=== PATIENT | male | born 1980 | race Caucasian/White ===

== ENCOUNTER 2023-04-04 08:32 | Emergency (ER) | payer OTHER, SELFPAY ==
[2023-04-04] VITALS (7 sets, daily range): BP systolic 111–127; BP diastolic 68–89; PULSE 51–78; RESP 18; TEMP 36.2; O2SAT 98–100; BMI 21.7
--- NOTE | 2023-04-04 08:50 | ED.HA ---
HPI - Headache General Chief Complaint: Headache Stated Complaint: dizzy/N/Head hurts Time Seen by Provider: 04/04/23 08:45 Mode of arrival: Family Vehicle History of Present Illness HPI Narrative: Patient is a healthy 42-year-old male who presents today with dizziness. He has had episodes of sounds like vertigo previously but nothing this bad. He tried to get out of bed get ready for work he was unable to do so. He was nauseated vomiting. If he lays down he is fine but whenever he stands up to walk his difficulty walking. He is no chest pain or palpitations. No fever chills. Related Data Previous Rx's Medication Instructions Recorded meclizine 25 mg tablet 25 mg PO TID PRN dizziness #14 tabs 04/04/23 Allergies Allergy/AdvReac Type Severity Reaction Status Date / Time No Known Drug Allergies Allergy Verified 04/04/23 08:41 Review of Systems Review of Systems ROS Unobtainable: All systems reviewed & are unremarkable except as noted in HPI and below Patient History Social History Smoking Status: Current every day smoker Smoking Status: Current every day smoker tobacco type: cigarettes alcohol intake frequency: 0-2 drinks per day Substance Use Type: marijuana Exam Initial Vital Signs Initial Vital Signs: Vital Signs Temperature 97.2 F L 04/04/23 08:41 Pulse Rate 78 04/04/23 08:41 Respiratory Rate 18 04/04/23 08:41 Blood Pressure 127/89 04/04/23 08:41 Pulse Oximetry 99 04/04/23 08:41 Oxygen Delivery Method Room Air 04/04/23 08:41 GENERAL: Alert 42-year-old male and in no acute distress. HEENT: Head atraumatic,EOMI mild nystagmus bilaterally, pupils reactive, face symmetric, moist mucous membranes CARDIOVASCULAR: Regular rate and rhythm without murmurs, rubs or gallops. RESPIRATORY: Breath sounds equal bilaterally, no wheezes rales or rhonchi. ABDOMEN: Soft, nontender. Normoactive bowel sounds all 4 quadrants. No guarding or rebound. EXTREMITIES: Normal range of motion, no clubbing or edema. Neurovascularly intact NEUROLOGICAL: Alert and oriented x4.Normal gait and speech. Cranial nerves II through XII grossly intact. Good [id number], good [id number], strength equal bilaterally, no dysarthria or aphasia, sensation in tact to soft touch bilaterally, no visual changes, no facial droop SKIN: Warm, dry, no laceration, no petechiae, no rashes or lesions. Scores NIH Stroke Scale Level of Conciousness: Alert, keenly responsive Ask month/age: Answers both questions correctly. Open/close eyes, close hand: Performs both tasks correctly Best gaze horizontal: Normal Visual simpson: No visual loss Facial palsy: Normal symetrical movement Left arm drift: No drift for full 10 sec Right arm drift: No drift for full 10 sec Left leg drift: No drift for full 5 sec Right leg drift: No drift for full 5 sec Limb ataxia: Absent Sensory on face/arms/legs: Normal, no sensory loss Best language: No aphasia, normal Dysarthria: Normal Extinction or inattention: No abnormality Total NIH Stroke scale score: 0 Course Orders Ordered: Discontinued Medications Sodium Chloride (Normal Saline 0.9%) 1,000 mls @ 1,000 mls/hr IV BOLUS ONE Stop: 04/04/23 09:57 Last Infusion: 04/04/23 10:16 Dose: Infused Documented By: Admin: 04/04/23 09:16 Dose: 1,000 mls/hr Documented By: MONICA Lorazepam (Lorazepam 2 Mg/Ml Inj) 0.5 mg IV NOW ONE Stop: 04/04/23 10:17 Last Admin: 04/04/23 10:31 Dose: 0.5 mg Documented By: MONICA Meclizine HCl (Meclizine Hcl 12.5 Mg Tablet) 25 mg PO NOW ONE Stop: 04/04/23 08:59 Last Admin: 04/04/23 09:16 Dose: 25 mg Documented By: MONICA Ondansetron HCl (Ondansetron 4 Mg/2 Ml Inj) 4 mg IV NOW ONE Stop: 04/04/23 08:59 Last Admin: 04/04/23 09:16 Dose: 4 mg Documented By: MONICA Vital Signs Vital signs: Vital Signs - 8 hr 04/04/23 11:00 04/04/23 11:00 Pulse Rate 59 L Blood Pressure 121/73 Pulse Oximetry 98 MDM - Headache Lab Data 04/04/23 09:09 04/04/23 09:09 Labs: Lab Results 04/04/23 Range/Units 09:09 WBC 7.0 (4.5-11.0) X10^3/uL RBC 4.69 (4.5-5.9) X10^6/uL Hgb 14.9 (13.5-17.5) g/dL Hct 44.1 (41-53) % MCV 94.0 (80-100) fL MCH 31.8 (26-34) PG MCHC 33.8 (30-36) % RDW 13.6 (11.6-14.8) % Plt Count 225 (150-400) X10^3/uL Neut % (Auto) 70.9 (50-75) % Lymph % (Auto) 18.8 L (25-40) % [place] % (Auto) 7.8 (3-14) % Eos % (Auto) 1.4 L (2-4) % Baso % (Auto) 1.1 (0-2) % Neut # (Auto) 5000 (2085-4708) /uL Lymph # (Auto) 1300 (5071-5262) /uL [place] # (Auto) 500 (0-900) /uL Eos # (Auto) 100 (0-450) /uL Baso # (Auto) 100 (0-100) /uL Sodium 139 (137-145) mmol/L Potassium 4.5 (3.4-5.1) mmol/L Chloride 103 (98-107) mmol/L Carbon Dioxide 27 (22-32) mmol/L BUN 19 (9-20) mg/dL Creatinine 0.78 (0.66-1.25) mg/dL Estimated GFR > 60 (>60) mL/min BUN/Creatinine Ratio 24.4 H (6-22) Glucose 114 H (70-100) mg/dL Calcium 9.7 (8.4-10.2) mg/dL Total Bilirubin 0.5 (0.2-1.3) mg/dL AST 31 (17-59) IU/L ALT 22 (<50) IU/L Alkaline Phosphatase 50 (38-126) U/L Total Protein 7.9 (6.3-8.2) g/dL Albumin 4.4 (3.5-5.0) g/dL Globulin 3.5 (1.7-4.1) g/dL Albumin/Globulin Ratio 1.3 (1.0-2.8) ECG Data Interpretation: Normal sinus rhythm rate 53 TN interval 2 QRS [address] changes no T-wave inversion MDM Narrative Medical decision making narrative: Patient 42-year-old male presents today with dizziness history of vertigo seems similar. Definitely worse with standing. I attempted to stand him at bedside and he got dizzy again. However while sitting able to look at phone sleep and be comfortable. He is given meclizine Zofran and fluids which did help some but still not able to quite stand afterwards. He is given 0.5 mg of Ativan which has helped him a little bit more. Blood work does not show any significant abnormalities. He has no focal deficits. History of vertigo I suspect vertigo less likely to be a posterior stroke although it was considered. Discharge Plan Departure Patient Disposition: Home Clinical Impression: Vertigo Instructions: DI for Vertigo Activity Restrictions/Additional Instructions: *You have been diagnosed with vertigo *What to do: At this time vertigo symptoms should improve spontaneously. Take it easy. *Continue to take medications as directed Meclizine 25-50 mg 3 times a day *Follow up with your primary care provider in 2-3 days or call [phone] *Return to ER if you should have increasing dizziness falling persistent vomiting numbness tingling weakness or any new, worsening or concerning symptoms Prescriptions: New meclizine 25 mg tablet 25 mg PO TID PRN (Reason: dizziness) Qty: 14 0RF Rx Instructions: 25-50mg q8hur PRN dizzy Referrals: Miscellaneous,Doctor[facility] [Primary Care Provider] - Stand Alone Forms: Patient Portal/API
[2023-04-04] MEDS: MECLIZINE HCL 12.5 MG TABLET 25 MG PO (09:16)
[2023-04-04] MEDS: SODIUM CHLORIDE 0.9% 1,000 ML 1000 ML IV (09:16)
[2023-04-04] MEDS: ONDANSETRON 4 MG/2 ML INJ IV (09:16)
[2023-04-04 09:36] LABS: Add Manual Diff / Slide Review NO; Basophils Absolute Auto 100 /uL (0-100); Basophils Percent Auto 1.1 % (0-2); Eosinophils Absolute Auto 100 /uL (0-450); Eosinophils Percent Auto 1.4 % (2-4); Hematocrit 44.1 % (41-53); Hemoglobin 14.9 g/dL (13.5-17.5); Lymphocytes Absolute Auto 1300 /uL (1100-4500); Lymphocytes Percent Auto 18.8 % (25-40); Mean Corpuscular HGB Conc 33.8 % (30-36); Mean Corpuscular Hemoglobin 31.8 PG (26-34); Monocytes Absolute Auto 500 /uL (0-900); Monocytes Percent Auto 7.8 % (3-14); Neutrophils Absolute Auto 5000 /uL (1500-7000); Neutrophils Percent Auto 70.9 % (50-75); Platelet Count 225 X10^3/uL (150-400); Red Blood Cell Count 4.69 X10^6/uL (4.5-5.9); Red Cell Distribution Width 13.6 % (11.6-14.8)
[2023-04-04 09:37] LABS: Alanine Aminotransferase 22 IU/L (<50); Albumin 4.4 g/dL (3.5-5.0); Albumin Globulin Ratio 1.3 (1.0-2.8); Alkaline Phosphatase 50 U/L (38-126); Aspartate Aminotransferase 31 IU/L (17-59); BUN Creatinine Ratio 24.4 (6-22); Bilirubin Total 0.5 mg/dL (0.2-1.3); Blood Urea Nitrogen 19 mg/dL (9-20); Calcium 9.7 mg/dL (8.4-10.2); Carbon Dioxide 27 mmol/L (22-32); Chloride 103 mmol/L (98-107); Estimated Glomerular Filt Rate > 60 mL/min (>60); Globulin 3.5 g/dL (1.7-4.1); Glucose 114 mg/dL (70-100); HEMOLYSIS < 15 (0-50); Potassium 4.5 mmol/L (3.4-5.1); Sodium 139 mmol/L (137-145); Total Protein 7.9 g/dL (6.3-8.2)
[2023-04-04] MEDS: LORazepam 2 MG/ML INJ 0.5 MG IV (10:31)
== END 2023-04-04 11:28 | disposition home or self-care (01) ==
PROVIDERS: Emergency Provider Emergency Medicine
DX: R42 Dizziness and giddiness (principal)
CPT/HCPCS: 36415; 80053; 85025; 93005; 93010; 96361; 96374; 96375; 99284; J2060; J2405